=== PATIENT | male | born 2000 | race Caucasian/White ===

== ENCOUNTER 2023-08-10 05:53 | Emergency (ER) | payer BC ==
[2023-08-10] MEDS ORDERED: Lidocaine/Transparent Dressing 1 EACH KIT ONE (06:26)
[2023-08-10] MEDS ORDERED: Silver Nitrate Application 1 EACH ONE (06:32)
[2023-08-10] MEDS ORDERED: Boostrix 0.5 ML (Tdap) VIAL (>/=7 yrs of age) ONE (06:51)
== END 2023-08-10 07:00 | disposition home or self-care (01) ==
LOC: CSHERS 05:53
DX: S61.011A Laceration without foreign body of right thumb without damage to nail, initial encounter (principal); W26.8XXA Contact with other sharp object(s), not elsewhere classified, initial encounter
CPT/HCPCS: 90471; 90715